=== PATIENT | male | born 1940 | race Caucasian/White ===

== ENCOUNTER → 2024-10-29 06:22 | Day surgery (SDC) | payer MEDICARE, OTHER, SELFPAY ==
[2024-10-29 07:39] LABS: Glucose - Point of Care 107 mg/dl (70-99)
== END ==
LOC: GI 06:22
PROVIDERS: ATTENDING PHYSICIAN Internal Medicine Gastroenterology
DX: D12.0 Benign neoplasm of cecum (principal); D12.2 Benign neoplasm of ascending colon; D12.3 Benign neoplasm of transverse colon; K57.30 Diverticulosis of large intestine without perforation or abscess without bleeding; K62.89 Other specified diseases of anus and rectum; Z86.0101 Personal history of adenomatous and serrated colon polyps
CPT/HCPCS: 45385; 45380; 88305; 82962

== ENCOUNTER → 2025-07-20 10:41 | Outpatient (REF) | payer MEDICARE, OTHER, SELFPAY | LOC: RCS 10:41 | PROVIDERS: ATTENDING PHYSICIAN Internal Medicine | DX: R53.83 Other fatigue (principal); R94.31 Abnormal electrocardiogram [ECG] [EKG] | CPT/HCPCS: 93306 ==

== ENCOUNTER → 2025-09-19 07:57 | Outpatient (REF) | payer MEDICARE, OTHER, SELFPAY ==
[2025-09-19 09:09] LABS: Hematocrit 53.1 % (39.0-52.0); Hemoglobin 17.3 g/dL (13.0-18.0); Mean Corp Hgb Conc. 32.6 g/dL (33.0-37.0); Mean Corpuscular Volume 88.5 fL (80.0-94.0); Nucleated Red Blood Cells % 0 % (-); Platelet Count 218 10^3/uL (130-400); Red Cell Dist. Width 13.8 % (11.5-14.5)
[2025-09-19 09:54] LABS: ALT (SGPT) 68 U/L (0-50); AST (SGOT) 39 U/L (17-59); Albumin 4.6 g/dl (3.5-5.0); Alkaline Phosphatase 50 U/L (38-126); Blood Urea Nitrogen 35 mg/dl (9-20); Calcium 10.2 mg/dl (8.4-10.2); Carbon Dioxide 30 mmol/L (22-30); Chloride 101 mmol/L (98-107); Glucose 168 mg/dl (70-99); HDL Cholesterol 35 mg/dl; LDL Cholesterol, Calculated 101 mg/dl; Potassium 4.7 mmol/L (3.5-5.1); Sodium 137 mmol/L (135-145); Total Protein 7.6 g/dl (6.3-8.2); Very Low Density Lipoprotein 46 mg/dl (0-30); eGFR 54.85
[2025-09-19 10:20] LABS: Glycohemoglobin (HgbA1c) 8.9 % (4.0-5.9)
[2025-09-19 10:46] LABS: Microalb - Urine Creatinine 119.500 mg/dl
[2025-09-19 10:50] LABS: Microalbumin, Random Urine 9.2 mg/dl (0.6-1.7)
== END ==
LOC: REG 07:57
PROVIDERS: ATTENDING PHYSICIAN Internal Medicine
DX: E11.9 Type 2 diabetes mellitus without complications (principal); I10 Essential (primary) hypertension; R53.83 Other fatigue
CPT/HCPCS: 36415; 80053; 80061; 82043; 82570; 83036; 84439; 84443; 85025